=== PATIENT | female | born 1955 | race Caucasian/White ===

== ENCOUNTER → 2017-02-22 | Outpatient (CLI) | payer MEDICARE, OTHER | LOC: RAD 12:35 | PROVIDERS: ATTEND Internal Medicine Cardiovascular Disease | DX: I71.2 Thoracic aortic aneurysm, without rupture (principal) | CPT/HCPCS: 71260; 82565 ==

== ENCOUNTER → 2017-08-25 | Outpatient (CLI) | payer MEDICARE, OTHER ==
--- NOTE | 2017-08-25 11:00 | RADIOLOGY REPORT (SQ) ---
EXAM DESCRIPTION: CT CHEST WITH COMPLETED DATE/TIME: 08/25/2017 10:22 am REASON FOR STUDY: THORACIC AORTIC ANEURYSM (I71.2) I71.2 THORACIC AORTIC ANEURYSM, WITHOUT RUPTURE COMPARISON: 02/22/2017 TECHNIQUE: CT scan of the chest performed using helical scanning technique with dynamic intravenous contrast injection. Images reviewed with lung, soft tissue and bone windows. Reconstructed coronal and sagittal MPR images reviewed. All images stored on PACS. All CT scanners at this facility use dose modulation, iterative reconstruction, and/or weight based d osing when appropriate to reduce radiation dose to as low as reasonably achievable (ALARA). [facility]: Dose Right [facility]: CareDose [facility]: Dose Right [facility]: Teradose 4D [facility]: Compufirst CONTRAST TYPE AND DOSE: contrast/concentration: Isovue 370.00 mg/ml; Total Contrast Delivered: 80.0 ml; Total Saline Delivered: 21.6 ml RENAL FUNCTION: Creatinine 0.8 RADIATION DOSE: Up-to-date CT equipment and radiation dose reduction techniques were employed. CTDIv ol: 11.9 mGy. DLP: 410 mGy-cm. . LIMITATIONS: None. FINDINGS: LUNGS AND PLEURA: No opacities, nodules, masses. No pneumothorax. No effusions. HILAR AND MEDIASTINAL STRUCTURES: No identified masses or abnormal nodes. HEART AND VASCULAR STRUCTURES: The previously described aneurysm of the ascending thoracic aorta is a gain identified and appears unchanged. Transverse diameter again measures 3.7 cm. No central pulmon brandon emboli. There is some minimal thickening of the pericardial stripe suggesting a small pericardia l effusion HARDWARE: None in the chest. UPPER ABDOMEN: No significant findings. Limited exam. THYROID AND OTHER SOFT TISSUES: No masses. No adenopathy. BONES: No significant finding. OTHER: Small hiatal hernia is again identified. IMPRESSION: Stable appearing ascending thoracic aortic aneurysm. No acute consolidations or pleural effusions. Other findings as noted above. TECHNICAL DOCUMENTATION: JOB ID: [id number] Quality ID # [id number]: Final reports with documentation of one or more dose reduction techniques (e.g., Au tomated exposure control, adjustment of the mA and/or kV according to patient size, use of iterative reconstruction technique) 2010 [employer]- All Rights Reserved
== END ==
LOC: RAD 09:52
PROVIDERS: ATTEND Internal Medicine Cardiovascular Disease
DX: I71.2 Thoracic aortic aneurysm, without rupture (principal)
CPT/HCPCS: 71260; 82565

== ENCOUNTER 2017-10-05 14:01 | Inpatient (IN) | payer MEDICARE, OTHER ==
[2017-10-05] MEDS ORDERED: ASPIRIN 81 MG TABLET, CHEWABLE PO ONE (14:29)
--- NOTE | 2017-10-05 14:33 | ER Document Report ---
ED Medical Screen (RME) - General Chief Complaint: Palpitations Stated Complaint: HEART RATE ISSUES Time Seen by Provider: 10/05/17 14:28 Mode of Arrival: Ambulatory Information source: Patient, Relative TRAVEL OUTSIDE OF THE [place] IN LAST 30 DAYS: No - HPI Onset: Other - INCREASED IN LAST 2 DAYS Onset/Duration: Intermittent Quality of pain: No pain Associated Symptoms: Other - FEELS PULSE IN NECK Exacerbated by: Denies Relieved by: Denies Similar symptoms previously: Yes Recently seen / treated by doctor: Yes - Related Data Smoking: Non-smoker Frequency of alcohol use: None Drug Abuse: None Allergies/Adverse Reactions: No Known Allergies Allergy (Verified 10/05/17 14:19) Home Medications: Current Home Medications Furosemide [Furosemide] 20 mg PO DAILY 10/05/17 [History] Levothyroxine Sodium [Synthroid 0.1 mg Tablet] 0.1 mg PO DAILY 10/05/17 [History ] Lisinopril [Prinivil 5 mg Tablet] 5 mg PO DAILY 10/05/17 [History] Loratadine 10 mg PO DAILY 10/05/17 [History] Pioglitazone HCl 15 mg PO DAILY 10/05/17 [History] Potassium Chloride 10 meq PO DAILY 10/05/17 [History] Simvastatin [Zocor 40 mg Tablet] 20 mg PO DAILY 10/05/17 [History] Sitagliptin Phosphate [Januvia] 100 mg PO DAILY 10/05/17 [History] Trazodone HCl 25 mg PO QHS 10/05/17 [History] Past Medical History - General Information source: Patient - Social History Cigarette use (# per day): No Chew tobacco use (# tins/day): No Frequency of alcohol use: None Drug Abuse: None Lives with: Family Family history: Reviewed & Not Pertinent - Past Medical History Cardiac Medical History: Reports: Hx Hypertension Denies: Hx Atrial Fibrillation, Hx Coronary Artery Disease Pulmonary Medical History: Reports: None Renal/ Medical History: Denies: Hx Peritoneal Dialysis Review of Systems - Review of Systems Constitutional: No symptoms reported EENT: See HPI Cardiovascular: See HPI Respiratory: No symptoms reported Gastrointestinal: No symptoms reported Physical Exam - Vital signs Vitals: Temp Pulse Resp BP Pulse Ox 97.8 F 118 H 18 167/85 H 97 10/05/17 14:06 10/05/17 14:06 10/05/17 14:06 10/05/17 14:06 10/05/17 14:06 Interpretation: Hypertensive, Tachycardic. No: Tachypneic, Febrile Course - Vital Signs Vital signs: Temp Pulse Resp BP Pulse Ox 97.8 F 118 H 18 167/85 H 97 10/05/17 14:06 10/05/17 14:06 10/05/17 14:06 10/05/17 14:06 10/05/17 14:06
[2017-10-05] MEDS ORDERED: METOPROLOL TARTRATE PF/INJ 5 MG/5 ML SDV IV ONE (15:08)
[2017-10-05 15:17] LABS: ABSOLUTE BASOPHILS # (AUTO) 0.2 10^3/uL (0.0-0.2); ABSOLUTE EOSINOPHILS # (AUTO) 0.1 10^3/uL (0.0-0.6); ABSOLUTE LYMPHOCYTES (AUTO) 1.6 10^3/uL (0.5-4.7); ABSOLUTE MONOCYTES (AUTO) 0.9 10^3/uL (0.1-1.4); ABSOLUTE NEUT (AUTO) 5.2 10^3/uL (1.7-8.2); BASOPHILS % (AUTO) 2.3 % (0-2); EOSINOPHILS % (AUTO) 1.9 % (0-6); HEMATOCRIT 43.4 % (36.0-47.0); HEMOGLOBIN 14.9 g/dL (12.0-15.5); HGB HCT DIFFERENCE 1.3; LYMPHOCYTES % (AUTO) 19.4 % (13-45); MEAN CORPUSCULAR HEMOGLOBIN 30.5 pg (27.0-33.4); MEAN CORPUSCULAR HGB CONC 34.4 g/dL (32.0-36.0); MEAN CORPUSCULAR VOLUME 89 fl (80-97); MONOCYTES % (AUTO) 11.6 % (3-13); RED CELL DISTRIBUTION WIDTH 13.4 % (11.5-14.0); SEGMENTED NEUTROPHILS % (AUTO) 64.8 % (42-78)
--- NOTE | 2017-10-05 15:44 | RADIOLOGY REPORT (SQ) ---
EXAM DESCRIPTION: CHEST SINGLE VIEW COMPLETED DATE/TIME: 10/05/2017 3:30 pm REASON FOR STUDY: PALPITATIONS COMPARISON: CT 08/25/2017 EXAM PARAMETERS: NUMBER OF VIEWS: One view. TECHNIQUE: Single frontal radiographic view of the chest acquired. RADIATION DOSE: NA LIMITATIONS: None. FINDINGS: LUNGS AND PLEURA: No opacities, masses or pneumothorax. No pleural effusion. MEDIASTINUM AND HILAR STRUCTURES: No masses. Contour normal. HEART AND VASCULAR STRUCTURES: Cardiomegaly. No failure. BONES: No acute findings. HARDWARE: None in the chest. OTHER: No other significant finding. IMPRESSION: Cardiomegaly. No failure. TECHNICAL DOCUMENTATION: JOB ID: [id number] [employer]- All Rights Reserved
--- NOTE | 2017-10-05 15:58 | ER Document Report ---
ED General - General Chief Complaint: Palpitations Stated Complaint: HEART RATE ISSUES Time Seen by Provider: 10/05/17 14:28 Mode of Arrival: Ambulatory Information source: Patient, Relative TRAVEL OUTSIDE OF THE [place] IN LAST 30 DAYS: No - HPI Patient complains to provider of: Fast heart rate Onset: This morning Onset/Duration: Sudden Quality of pain: No pain Severity: Moderate Pain Level: Denies Context: The members state the patient does appear to be short of breath upon ambulation. She denies this. Associated symptoms: None Exacerbated by: Denies Relieved by: Denies Similar symptoms previously: Yes Recently seen / treated by doctor: No - Related Data Allergies/Adverse Reactions: No Known Allergies Allergy (Verified 10/05/17 14:19) Home Medications: Current Home Medications Furosemide [Furosemide] 20 mg PO DAILY 10/05/17 [History] Levothyroxine Sodium [Synthroid 0.1 mg Tablet] 0.1 mg PO DAILY 10/05/17 [History ] Lisinopril [Prinivil 5 mg Tablet] 5 mg PO DAILY 10/05/17 [History] Loratadine 10 mg PO DAILY 10/05/17 [History] Pioglitazone HCl 15 mg PO DAILY 10/05/17 [History] Potassium Chloride 10 meq PO DAILY 10/05/17 [History] Simvastatin [Zocor 40 mg Tablet] 20 mg PO DAILY 10/05/17 [History] Sitagliptin Phosphate [Januvia] 100 mg PO DAILY 10/05/17 [History] Trazodone HCl 25 mg PO QHS 10/05/17 [History] Past Medical History - General Information source: Patient, Relative, [facility] Records - Social History Smoking Status: Never Smoker Cigarette use (# per day): No Chew tobacco use (# tins/day): No Frequency of alcohol use: None Drug Abuse: None Lives with: Family Family History: Reviewed & Not Pertinent Patient has suicidal ideation: No Patient has homicidal ideation: No - Past Medical History Cardiac Medical History: Reports: Hx Hypertension, Other Denies: Hx Atrial Fibrillation, Hx Coronary Artery Disease Pulmonary Medical History: Reports: None EENT Medical History: Reports: None Other: Patient had a cleft palate and had it repaired Neurological Medical History: Reports: None Endocrine Medical History: Reports: Hx Diabetes Mellitus Type 2, Hx Hypothyroidism Renal/ Medical History: Reports: None. Denies: Hx Peritoneal Dialysis Malignancy Medical History: Reports: None GI Medical History: Reports: None Musculoskeltal Medical History: Reports None Skin Medical History: Reports None Psychiatric Medical History: Reports: None Traumatic Medical History: Reports: None Infectious Medical History: Reports: None Surgical Hx: Other - Cleft palate repair Physical Exam - Vital signs Vitals: Temp Pulse Resp BP Pulse Ox 97.8 F 118 H 18 167/85 H 97 10/05/17 14:06 10/05/17 14:06 10/05/17 14:06 10/05/17 14:06 10/05/17 14:06 Interpretation: Hypertensive, Tachycardic - Notes Notes: PHYSICAL EXAMINATION: GENERAL: Well-appearing, well-nourished and in no acute distress. HEAD: Atraumatic, normocephalic. EYES: Pupils equal round and reactive to light, extraocular movements intact, conjunctiva are normal. ENT: Nares patent, oropharynx clear without exudates. Moist mucous membranes. NECK: Normal range of motion, supple without lymphadenopathy LUNGS: Breath sounds clear to auscultation bilaterally and equal. No wheezes rales or rhonchi. HEART: Tacky and rhythm without murmurs ABDOMEN: Soft, nontender, nondistended abdomen. No guarding, no rebound. No masses appreciated. Female : deferred Musculoskeletal: Normal range of motion, no pitting or edema. No cyanosis. NEUROLOGICAL: Cranial nerves grossly intact. Normal speech, normal gait. Normal sensory, motor exams PSYCH: Normal mood, normal affect. SKIN: Warm, Dry, normal turgor, no rashes or lesions noted. Course - Re-evaluation Re-evalutation: 10/05/17 16:34 I did go back and speak with the patient as well as her relatives. Patient is short of breath upon mild exertion (getting in and out of bed.) Her pulse ox only dropped to about 95% on room air with this. Metoprolol did slow her heart rate down into the low 90s and a repeat EKG demonstrated normal sinus rhythm with a heart rate of 87. CTA ordered, patient and family aware. Continue to await results of troponin as well as TSH. - Vital Signs Vital signs: Temp Pulse Resp BP Pulse Ox 97.9 F 96 22 H 131/64 H 93 10/06/17 07:24 10/06/17 07:24 10/06/17 07:24 10/06/17 07:24 10/06/17 07:24 - Laboratory Result Diagrams: 10/06/17 03:08 10/06/17 03:08 Laboratory results interpreted by me: 10/05/17 10/05/17 10/05/17 15:00 15:00 15:46 Basophils % 2.3 H D-Dimer 2.71 H BUN 21 H Glucose 127 H - Diagnostic Test Radiology reviewed: Image reviewed Radiology results interpreted by me: 10/05/17 16:01 cardiomegaly without CHF. Mild widened mediastinum. 10/05/17 16:47 - EKG Interpretation by Me EKG shows normal: Sinus rhythm Rate: Tachycardia When compared to previous EKG there are: Previous EKG unavailable Additional EKG results interpreted by me: 10/05/17 16:39 EKG completed 10/05/2017 at 1622 showed normal sinus rhythm at a rate of 87 with left axis deviation mild left ventricular hypertrophy - Transfer of Care Notes: 10/05/17 18:17 Dr. Allan casting director called to state that the patient did have clots in her right lower lobe pulmonary artery distribution area. I did talk to the hospitalist Dr. Harmon and he will sign out to Dr. Mayer. 10/05/17 18:44 I did talk to the family as well as the patient. They are aware of the results of the CAT scan. I did tell him that the admitting physician will be coming down to discuss disposition with them questions were answered in stable condition Discharge - Discharge Clinical Impression: Pulmonary embolism on right Condition: Good Disposition: ADMITTED INPATIENT Admitting Provider: Hospitalist Unit Admitted: Telemetry
[2017-10-05 16:15] LABS: ALANINE AMINOTRANSFERASE 34 U/L (9-52); ALBUMIN 4.4 g/dL (3.5-5.0); ALKALINE PHOSPHATASE 123 U/L (38-126); ANION GAP 14 (5-19); ASPARTATE AMINO TRANSFERASE 28 U/L (14-36); BILIRUBIN,DIRECT 0.4 mg/dL (0.0-0.4); BILIRUBIN,TOTAL 0.9 mg/dL (0.2-1.3); BLOOD UREA NITROGEN 21 mg/dL (7-20); CALCIUM 9.5 mg/dL (8.4-10.2); CARBON DIOXIDE 27 mmol/L (22-30); CHLORIDE 102 mmol/L (98-107); CREATINE KINASE 68 U/L (30-135); CREATININE RESULT 0.79 mg/dL (0.52-1.25); GLUCOSE 127 mg/dL (75-110); POTASSIUM 4.3 mmol/L (3.6-5.0); SODIUM 142.8 mmol/L (137-145); TOTAL PROTEIN 7.5 g/dL (6.3-8.2)
[2017-10-05] MEDS ORDERED: NORMAL SALINE 500 ML IV ONE (16:25)
[2017-10-05 16:26] LABS: CREATINE KINASE MB 0.66 ng/mL (<4.55)
[2017-10-05 16:28] LABS: TROPONIN I < 0.012 ng/mL
--- NOTE | 2017-10-05 18:15 | RADIOLOGY REPORT (SQ) ---
EXAM DESCRIPTION: CTA CHEST COMPLETED DATE/TIME: 10/05/2017 5:49 pm REASON FOR STUDY: tachy/+ d dimer COMPARISON: CT chest 08/25/2017 TECHNIQUE: CT scan of the chest performed using helical scanning technique with dynamic intravenous contrast injection. Images reviewed with lung, soft tissue and bone windows. Reconstructed coronal and sagittal MPR images reviewed. Additional 3 dimensional post-processing performed to develop Maximal Intensity Projection images (MT P). All images stored on PACS. All CT scanners at this facility use dose modulation, iterative reconstruction, and/or weight based d osing when appropriate to reduce radiation dose to as low as reasonably achievable (ALARA). [facility]: Dose Right [facility]: CareDose [facility]: Dose Right [facility]: Teradose 4D [facility]: DocbookMD CONTRAST TYPE AND DOSE: 78 cc Isovue 370- low osmolar. Contrast bolus optimized for the pulmonary arteries. Not diagnostic for the aorta. RENAL FUNCTION: Creatinine 0.8 BUN 21 RADIATION DOSE: Total exam DLP 561 mGy cm. LIMITATIONS: None. FINDINGS: LUNGS AND PLEURA: No masses, infiltrates, pneumothorax. No pleural effusions, calcificati ons. AORTA AND GREAT VESSELS: There is ectasia of the ascending aorta. HEART: No pericardial effusion. PULMONARY ARTERIES: Cannot exclude small emboli in the right lower lobe pulmonary arterial branches. HILAR AND MEDIASTINAL STRUCTURES: No identified masses or abnormal nodes. HARDWARE: None in the chest. UPPER ABDOMEN: No significant findings. Limited exam. THYROID AND OTHER SOFT TISSUES: No masses. No adenopathy. BONES: No acute or significant finding. 3D MIPS: Confirm above findings. OTHER: No other significant finding. IMPRESSION: There appear to be small emboli in the branches of the right lower lobe pulmonary artery . COMMENT: Findings were discussed with the ordering physician at 1810 hours on this date. Quality ID # [id number]: Final reports with documentation of one or more dose reduction techniques (e.g., Au tomated exposure control, adjustment of the mA and/or kV according to patient size, use of iterative reconstruction technique) TECHNICAL DOCUMENTATION: JOB ID: [id number]- All Rights Reserved
--- NOTE | 2017-10-05 18:53 | EKG REPORT ---
SEVERITY:- ABNORMAL ECG - SINUS RHYTHM LEFT AXIS DEVIATION LEFT VENTRICULAR HYPERTROPHY NONSPECIFIC ST-T CHANGES ANTERIOR LEADS. : Confirmed by: Lucas Stanley MD 05-Oct-2017 18:52:32
--- NOTE | 2017-10-05 18:53 | EKG REPORT ---
SEVERITY:- ABNORMAL ECG - SINUS RHYTHM PROBABLE LEFT ATRIAL ABNORMALITY LEFT ANTERIOR FASCICULAR BLOCK LEFT VENTRICULAR HYPERTROPHY LATERAL INFARCT, OLD : Confirmed by: Lucas Stanley MD 05-Oct-2017 18:52:45
[2017-10-05] MEDS ORDERED: ACETAMINOPHEN 325 MG TABLET PO PRN (20:37)
[2017-10-05] MEDS ORDERED: ONDANSETRON 4 MG TAB.RAPDIS PO PRN (20:37)
[2017-10-05 21:55] LABS: CREATINE KINASE MB 0.87 ng/mL (<4.55); TROPONIN I 0.023 ng/mL
[2017-10-05] MEDS ORDERED: SIMVASTATIN 40 MG TABLET PO SCH (22:00)
[2017-10-05] MEDS ORDERED: TRAZODONE HCL 50 MG TABLET PO SCH (22:00)
[2017-10-05] MEDS ORDERED: ENOXAPARIN SODIUM INJ 100 MG/1 ML DISP.SYRIN SUBCUT SCH ×2 (22:00)
[2017-10-06 03:26] LABS: HEMATOCRIT 39.7 % (36.0-47.0); HEMOGLOBIN 13.5 g/dL (12.0-15.5); HGB HCT DIFFERENCE 0.8; MEAN CORPUSCULAR HEMOGLOBIN 30.3 pg (27.0-33.4); MEAN CORPUSCULAR HGB CONC 34.1 g/dL (32.0-36.0); MEAN CORPUSCULAR VOLUME 89 fl (80-97); RED BLOOD COUNT 4.46 10^6/uL (3.72-5.28); RED CELL DISTRIBUTION WIDTH 13.6 % (11.5-14.0); WHITE BLOOD COUNT 8.4 10^3/uL (4.0-10.5)
[2017-10-06 03:50] LABS: ANION GAP 12 (5-19); BLOOD UREA NITROGEN 18 mg/dL (7-20); CALCIUM 9.2 mg/dL (8.4-10.2); CARBON DIOXIDE 25 mmol/L (22-30); CHLORIDE 106 mmol/L (98-107); CREATININE RESULT 0.75 mg/dL (0.52-1.25); GLUCOSE 131 mg/dL (75-110); POTASSIUM 3.9 mmol/L (3.6-5.0); SODIUM 143.1 mmol/L (137-145)
--- NOTE | 2017-10-06 03:51 | PDOC H&P ---
History of Present Illness Admission Date/PCP: 10/05/17 18:52 MARY KLINE PA-C History of Present Illness: KEHINDE LEPE is a 61 year old female with past medical history of diabetes, hypertension, hypothyroidism, hypokalemia, hyperlipidemia who reports that she has been short of breath and had dyspnea on exertion for the last several days. She reports that yesterday she became concerned when she started having some fast heart rate after drinking tea. She denies any chest discomfort. In the emergency department, patient was found to have an acute pulmonary embolus. She is referred to hospital service for admission. Past Medical History Cardiac Medical History: Reports: Hyperlipidema, Hypertension Denies: Atrial Fibrillation, Coronary Artery Disease Pulmonary Medical History: Reports: None EENT Medical History: Reports: Throat - Cleft palate Neurological Medical History: Reports: None Endocrine Medical History: Reports: Diabetes Mellitus Type 2, Hypothyroidism, Obesity Renal/ Medical History: Reports: None Malignancy Medical History: Reports: None GI Medical History: Reports: None Musculoskeltal Medical History: Reports: None Skin Medical History: Reports: None Psychiatric Medical History: Reports: None Traumatic Medical History: Reports: None Infectious Medical History: Reports: None Past Surgical History Past Surgical History: Reports: Other - Cleft palate surgery Social History Lives with: Family Smoking Status: Never Smoker Frequency of Alcohol Use: None Hx Recreational Drug Use: No Hx Prescription Drug Abuse: No - Advance Directive Resuscitation Status: Full Code Surrogate healthcare decision maker:: Karuna Goodman, sister Family History Family History: Other - Kidney problems, mother; pulmonary fibrosis, father Parental Family History Reviewed: Yes Children Family History Reviewed: NA Sibling(s) Family History Reviewed.: Yes Medication/Allergy Home Medications: Furosemide [Furosemide] 20 mg PO DAILY 10/05/17 Levothyroxine Sodium [Synthroid 0.1 mg Tablet] 0.1 mg PO DAILY 10/05/17 Lisinopril [Prinivil 5 mg Tablet] 5 mg PO DAILY 10/05/17 Loratadine 10 mg PO DAILY 10/05/17 Pioglitazone HCl 15 mg PO DAILY 10/05/17 Potassium Chloride 10 meq PO DAILY 10/05/17 Simvastatin [Zocor 40 mg Tablet] 20 mg PO DAILY 10/05/17 Sitagliptin Phosphate [Januvia] 100 mg PO DAILY 10/05/17 Trazodone HCl 25 mg PO QHS 10/05/17 Allergies/Adverse Reactions: No Known Allergies Allergy (Verified 10/05/17 14:19) Review of Systems Constitutional: ABSENT: chills, fever(s), headache(s), weight gain, weight loss Eyes: ABSENT: visual disturbances Ears: ABSENT: hearing changes Cardiovascular: PRESENT: dyspnea on exertion, edema. ABSENT: chest pain, orthropnea, palpitations Respiratory: PRESENT: dyspnea. ABSENT: cough, hemoptysis, sputum Gastrointestinal: ABSENT: abdominal pain, constipation, diarrhea, hematemesis, hematochezia, nausea, vomiting Genitourinary: ABSENT: dysuria, hematuria Musculoskeletal: ABSENT: joint swelling Integumentary: ABSENT: rash, wounds Neurological: ABSENT: abnormal gait, abnormal speech, confusion, dizziness, focal weakness, syncope Psychiatric: ABSENT: anxiety, depression, homidical ideation, suicidal ideation Endocrine: ABSENT: cold intolerance, heat intolerance, polydipsia, polyuria Hematologic/Lymphatic: ABSENT: easy bleeding, easy bruising Physical Exam Vital Signs: Temp Pulse Resp BP Pulse Ox 97.9 F 71 16 116/73 98 10/05/17 23:18 10/06/17 02:00 10/05/17 23:18 10/05/17 23:18 10/05/17 23:18 Intake & Output 10/04/17 10/05/17 10/06/17 06:59 06:59 06:59 Weight 93.3 kg General appearance: PRESENT: no acute distress, morbidly obese, well-developed, well-nourished Head exam: PRESENT: atraumatic, normocephalic Eye exam: PRESENT: conjunctiva pink, EOMI, PERRLA. ABSENT: scleral icterus Ear exam: PRESENT: normal external ear exam Mouth exam: PRESENT: moist, tongue midline Neck exam: ABSENT: JVD, lymphadenopathy, thyromegaly, tracheal deviation Respiratory exam: PRESENT: clear to auscultation bhargavi, symmetrical, unlabored. ABSENT: rales, rhonchi, wheezes Cardiovascular exam: PRESENT: RRR, +S1, +S2, tachycardia. ABSENT: diastolic murmur, rubs, systolic murmur Pulses: PRESENT: normal dorsalis pedis pul Vascular exam: PRESENT: normal capillary refill GI/Abdominal exam: PRESENT: normal bowel sounds, soft. ABSENT: distended, guarding, mass, organolmegaly, rebound, tenderness Rectal exam: PRESENT: deferred Extremities exam: PRESENT: full ROM, +2 edema. ABSENT: calf tenderness, clubbing Neurological exam: PRESENT: alert, awake, oriented to person, oriented to place , oriented to time, oriented to situation, CN II-XII grossly intact. ABSENT: motor sensory deficit Psychiatric exam: PRESENT: appropriate affect, normal mood. ABSENT: homicidal ideation, suicidal ideation Skin exam: PRESENT: dry, intact, warm. ABSENT: cyanosis, rash Results Laboratory Results: 10/06/17 03:08 10/05/17 10/06/17 21:03 03:08 WBC 8.4 RBC 4.46 Hgb 13.5 Hct 39.7 MCV 89 MCH 30.3 MCHC 34.1 RDW 13.6 Plt Count 182 TSH 0.86 10/05/17 10/05/17 21:03 21:03 Creatine Kinase 63 CK-MB (CK-2) 0.87 Troponin I 0.023 Impressions: Chest X-Ray 10/05/17 14:30 IMPRESSION: Cardiomegaly. No failure. Chest/Abdomen CTA 10/05/17 16:29 IMPRESSION: There appear to be small emboli in the branches of the right lower lobe pulmonary artery. Status: Imported from PACS Assessment & Plan - Diagnosis (1) Pulmonary embolism on right Is this a current diagnosis for this admission?: Yes Plan: Place patient on Lovenox with plans to transition to eliquis tomorrow patient is unable to take pills that are not able to be chewed. (2) Diabetes mellitus Qualifiers: Diabetes mellitus type: type 2 Diabetes mellitus complication status: with unspecified complications Diabetes mellitus manager intermediate insulin use: without manager intermediate use Qualified Code(s): E11.8 - Type 2 diabetes mellitus with unspecified complications Is this a current diagnosis for this admission?: Yes Plan: Continue on home medications. Place on diabetic diet. Check A1c (3) Hypertension Qualifiers: Hypertension type: essential hypertension Qualified Code(s): I10 - Essential (primary) hypertension Is this a current diagnosis for this admission?: Yes Plan: continue home medications (4) Hyperlipidemia Qualifiers: Hyperlipidemia type: unspecified Qualified Code(s): E78.5 - Hyperlipidemia , unspecified Is this a current diagnosis for this admission?: Yes (5) Morbid obesity with BMI of 40.0-44.9, adult Is this a current diagnosis for this admission?: Yes (6) Personal history of (corrected) cleft lip and palate Is this a current diagnosis for this admission?: Yes - Time Time Spent: 30 to 50 Minutes Anticipated discharge: Home
[2017-10-06 03:59] LABS: CREATINE KINASE MB 1.61 ng/mL (<4.55); TROPONIN I 0.021 ng/mL
[2017-10-06] MEDS ORDERED: LEVOTHYROXINE SODIUM 0.1 MG TABLET PO SCH (06:00)
[2017-10-06] MEDS ORDERED: APIXABAN 5 MG TABLET PO ONE (09:00)
[2017-10-06] MEDS ORDERED: DOCUSATE SODIUM 100 MG CAPSULE PO SCH (10:00)
[2017-10-06] MEDS ORDERED: PIOGLITAZONE HCL 15 MG TABLET PO SCH (10:00)
[2017-10-06] MEDS ORDERED: DOCUSATE SODIUM 100 MG/10 ML UDC PO SCH (10:00)
[2017-10-06] MEDS ORDERED: LISINOPRIL 5 MG TABLET PO SCH (10:00)
[2017-10-06] MEDS ORDERED: SITAGLIPTIN PHOSPHATE 50 MG TABLET PO SCH (10:00)
[2017-10-06] MEDS ORDERED: LORATADINE 10 MG TABLET PO SCH (10:00)
[2017-10-06 10:40] LABS: CREATINE KINASE MB 1.28 ng/mL (<4.55); TROPONIN I 0.013 ng/mL
--- NOTE | 2017-10-06 11:56 | RADIOLOGY REPORT (SQ) ---
EXAM DESCRIPTION: VENOUS BILATERAL LOWER COMPLETED DATE/TIME: 10/06/2017 11:47 am REASON FOR STUDY: new pe, ble swelling COMPARISON: None. TECHNIQUE: Dynamic and static lamb scale and color images acquired of both lower extremity venous sy stems. Selected spectral images acquired with additional compression and augmentation maneuvers. Imag es stored on PACS. LIMITATIONS: None. FINDINGS: RIGHT LEG COMMON FEMORAL AND FEMORAL: Normal phasicity, compression and augmentation. No visualized echogenic m aterial on lamb scale. No defects on color images. POPLITEAL: Normal compression and augmentation. No visualized echogenic material on lamb scale. No de fects on color images. CALF VESSELS: Normal compression and augmentation. No visualized echogenic material on lamb scale. No defects on color image. GSV AND SSV: Normal compression. No visualized echogenic material on lamb scale. No defects on color images. ANY DEEP VENOUS INSUFFICIENCY: No. ANY EVIDENCE OF POPLITEAL CYST: No. OTHER: No other significant finding. LEFT LEG COMMON FEMORAL AND FEMORAL: Normal phasicity, compression and augmentation. No visualized echogenic m aterial on lamb scale. No defects on color images. POPLITEAL: Normal compression and augmentation. No visualized echogenic material on lamb scale. No de fects on color images. CALF VESSELS: Normal compression and augmentation. No visualized echogenic material on lamb scale. No defects on color images. GSV AND SSV: Normal compression. No visualized echogenic material on lamb scale. No defects on color images. ANY DEEP VENOUS INSUFFICIENCY: No. ANY EVIDENCE POPLITEAL CYST: No. OTHER: No other significant finding. IMPRESSION: NO EVIDENCE DVT OR SVT IN EITHER LEG. TECHNICAL DOCUMENTATION: JOB ID: [id number] [employer]- All Rights Reserved
[2017-10-06 11:57] LABS: APPEARANCE,URINE SLIGHTLY-CLOUDY; BILIRUBIN,URINE NEGATIVE (NEGATIVE); GLUCOSE, URINE NEGATIVE (NEGATIVE); KETONES,URINE NEGATIVE (NEGATIVE); LEUKOCYTE ESTERASE,URINE LARGE (NEGATIVE); NITRITE,URINE NEGATIVE (NEGATIVE); PROTEIN,URINE NEGATIVE (NEGATIVE); URINE SPECIFIC GRAVITY 1.033
[2017-10-06 12:10] LABS: BACTERIA,URINE 2+ /HPF; WBC,URINE 20-30 /HPF
--- NOTE | 2017-10-06 13:41 | PDOC DISCHARGE SUMMARY ---
General - Admit/Disc Date/PCP Admission Date/Primary Care Provider: 10/05/17 18:52 MARY KLINE PA-C Discharge Date: 10/06/17 - Discharge Diagnosis (1) Diabetes mellitus Is this a current diagnosis for this admission?: Yes (2) Hyperlipidemia Is this a current diagnosis for this admission?: Yes (3) Hypertension Is this a current diagnosis for this admission?: Yes (4) Morbid obesity with BMI of 40.0-44.9, adult Is this a current diagnosis for this admission?: Yes (5) Personal history of (corrected) cleft lip and palate Is this a current diagnosis for this admission?: Yes (6) Pulmonary embolism on right Is this a current diagnosis for this admission?: Yes - Additional Information Resuscitation Status: Full Code Discharge Diet: Diabetic Discharge Activity: Activity As Tolerated Home Medications: Furosemide 20 mg PO DAILY 10/05/17 Levothyroxine Sodium [Synthroid 0.1 mg Tablet] 0.1 mg PO DAILY 10/05/17 Lisinopril [Prinivil 5 mg Tablet] 5 mg PO DAILY 10/05/17 Loratadine 10 mg PO DAILY 10/05/17 Pioglitazone HCl 15 mg PO DAILY 10/05/17 Potassium Chloride 10 meq PO DAILY 10/05/17 Simvastatin [Zocor 40 mg Tablet] 20 mg PO DAILY 10/05/17 Sitagliptin Phosphate [Januvia] 100 mg PO DAILY 10/05/17 Trazodone HCl 25 mg PO QHS 10/05/17 Apixaban [Eliquis 5 mg Tablet] 10 mg PO BID 30 Days #68 tablet 10/06/17 History of Present Illness History of Present Illness: KEHINDE LEPE is a 61 year old female who presented with complaint of dyspnea on exertion. Hospital Course Hospital Course: Patient presented with dyspnea on exertion and tachycardia. Patient found to have a pulmonary embolism on CTA. Venous doppler is negative. Patient was initially started on levonex 1 mg/kg. Patient was transitioned to eliquis 10mg po bid x 7 days then followed by 5mg po bid for 3-4 months. Patient denies any SOB or chest pain. Patient was continued on home medications for her diabetes. Patient was continued on her home medications for hypertension. Physical Exam Vital Signs: Temp Pulse Resp BP Pulse Ox 97.5 F 97 20 137/65 H 98 10/06/17 11:21 10/06/17 11:21 10/06/17 11:21 10/06/17 11:21 10/06/17 11:21 Intake & Output 10/05/17 10/06/17 10/07/17 06:59 06:59 06:59 Weight 93.3 kg 93.3 kg General appearance: PRESENT: no acute distress, well-developed, well-nourished Head exam: PRESENT: atraumatic, normocephalic Eye exam: PRESENT: conjunctiva pink, EOMI, PERRLA. ABSENT: scleral icterus Ear exam: PRESENT: normal external ear exam Mouth exam: PRESENT: moist, tongue midline Neck exam: ABSENT: carotid bruit, JVD, lymphadenopathy, thyromegaly Respiratory exam: PRESENT: clear to auscultation bhargavi. ABSENT: rales, rhonchi, wheezes Cardiovascular exam: PRESENT: RRR. ABSENT: diastolic murmur, rubs, systolic murmur Pulses: PRESENT: normal dorsalis pedis pul Vascular exam: PRESENT: normal capillary refill GI/Abdominal exam: PRESENT: normal bowel sounds, soft. ABSENT: distended, guarding, mass, organolmegaly, rebound, tenderness Rectal exam: PRESENT: deferred Extremities exam: PRESENT: full ROM. ABSENT: calf tenderness, clubbing, pedal edema Neurological exam: PRESENT: alert, awake, oriented to person, oriented to place , oriented to time, oriented to situation, CN II-XII grossly intact. ABSENT: motor sensory deficit Psychiatric exam: PRESENT: appropriate affect, normal mood. ABSENT: homicidal ideation, suicidal ideation Skin exam: PRESENT: dry, intact, warm. ABSENT: cyanosis, rash Results Laboratory Results: 10/06/17 03:08 10/06/17 03:08 10/05/17 10/06/17 10/06/17 21:03 03:08 03:08 WBC 8.4 RBC 4.46 Hgb 13.5 Hct 39.7 MCV 89 MCH 30.3 MCHC 34.1 RDW 13.6 Plt Count 182 Sodium 143.1 Potassium 3.9 Chloride 106 Carbon Dioxide 25 Anion Gap 12 BUN 18 Creatinine 0.75 Est GFR ( Amer) > 60 Est GFR (Non-Af Amer) > 60 Glucose 131 H Calcium 9.2 TSH 0.86 Urine Color Urine Appearance Urine pH Ur Specific Geary Urine Protein Urine Glucose (UA) Urine Ketones Urine Blood Urine Nitrite Ur Leukocyte Esterase Stool Occult Blood 10/06/17 10/06/17 09:30 11:03 WBC RBC Hgb Hct MCV MCH MCHC RDW Plt Count Sodium Potassium Chloride Carbon Dioxide Anion Gap BUN Creatinine Est GFR ( Amer) Est GFR (Non-Af Amer) Glucose Calcium TSH Urine Color YELLOW Urine Appearance SLIGHTLY-CLOUDY Urine pH 5.0 Ur Specific Geary 1.033 Urine Protein NEGATIVE Urine Glucose (UA) NEGATIVE Urine Ketones NEGATIVE Urine Blood SMALL H Urine Nitrite NEGATIVE Ur Leukocyte Esterase LARGE H Stool Occult Blood NEGATIVE 10/05/17 10/05/17 10/06/17 21:03 21:03 03:08 Creatine Kinase 63 86 CK-MB (CK-2) 0.87 Troponin I 0.023 10/06/17 10/06/17 10/06/17 03:08 09:40 09:40 Creatine Kinase 93 CK-MB (CK-2) 1.61 1.28 Troponin I 0.021 0.013 Impressions: Chest X-Ray 10/05/17 14:30 IMPRESSION: Cardiomegaly. No failure. Chest/Abdomen CTA 10/05/17 16:29 IMPRESSION: There appear to be small emboli in the branches of the right lower lobe pulmonary artery. Venous Doppler Study 10/06/17 00:00 IMPRESSION: NO EVIDENCE DVT OR SVT IN EITHER LEG. Qualifiers PATEINT BEING DISCHARGED WITH ANY OF THE FOLLOWING DIAGNOSIS?: VTE (PE or DVT) VTE patient discharged on overlapping Therapy?: Yes Plan Discharge Plan: Patient is hemodynamically stable and is being discharge home on eliquis 10mg po bid x 7 days and 5mg po bid for the 3-4 month duration. Time Spent: Less than 30 Minutes
--- NOTE | 2017-10-06 15:50 | XCELERA REPORT ---
[address] [address] Transthoracic Echocardiogram Report Name: KEHINDE LEPE I Age: 61 yrs Gender: Female : 1955 Patient Status: Inpatient Patient Location: [address] [place] [address] Study Date: 10/06/2017 08:28 AM Height: 60 in Weight: 205 lb BSA: 1.9 m2 Procedure: A two-dimensional transthoracic echocardiogram with color flow and Doppler was performed. Study Quality: Technically suboptimal. The study was technically difficult with many images being suboptimal in quality. Reason For Study: acute pe History: acute pe. Ordering Physician: TONIA NIX Performed By: Sloane Santoro Interpretation Summary The left ventricle is grossly normal size. There is mild concentric left ventricular hypertrophy. Doppler measurements suggest impaired left ventricular relaxation, which is associated with grade I/IV or mild diastolic dysfunction Probably no regional wall motion abnormality with LVF60% The right ventricle is not well visualized secondary to technical limitations Right atrium not well visualized secondary to technical limitations The left atrial size is normal. There is no mitral valve stenosis. Probaly no MR. There is no aortic valve stenosis There is no tricuspid stenosis. Probably no TR.Unable to calculate RVSP due to insufficient TR jet. There is no pericardial effusion. No other comments. MMode/2D Measurements & Calculations RVDd: 2.6 cm LVIDd: 3.1 cm FS: 13.7 % Ao root diam: 3.0 cm IVSd: 1.2 cm LVIDs: 2.7 cm EDV(Teich): 37.6 ml LVPWd: 1.2 cm ESV(Teich): 26.2 ml Ao root area: 7.1 cm2 EF(Teich): 30.3 % LA dimension: 3.6 cm LVOT diam: 2.4 cm LVOT area: 4.6 cm2 Doppler Measurements & Calculations MV E max jaylen: MV P1/2t max jaylen: Ao V2 max: LV V1 max P.9 cm/sec 72.7 cm/sec 175.3 cm/sec 8.1 mmHg MV A max jaylen: MV P1/2t: 59.2 msec Ao max PG: LV V1 max: 93.5 cm/sec MVA(P1/2t): 3.7 cm2 12.3 mmHg 142.5 cm/sec MV E/A: 0.77 MV dec slope: NADEGE(V,D): 3.7 cm2 360.1 cm/sec2 PA V2 max: 107.6 cm/sec PA max P.6 mmHg Left Ventricle The left ventricle is grossly normal size. There is mild concentric left ventricular hypertrophy. Doppler measurements suggest impaired left ventricular relaxation, which is associated with grade I/IV or mild diastolic dysfunction. Probably no regional wall motion abnormality with LVF60%. Right Ventricle The right ventricle is not well visualized secondary to technical limitations. Atria Right atrium not well visualized secondary to technical limitations. The left atrial size is normal. Mitral Valve There is no mitral valve stenosis. Probaly no MR. Aortic Valve There is no aortic valve stenosis. There is a mild amount of aortic regurgitation. Tricuspid Valve There is no tricuspid stenosis. Probably no TR.Unable to calculate RVSP due to insufficient TR jet. Effusions There is no pericardial effusion. No other comments. : TONIA NIX > Nanda Hayward
[2017-10-06 17:26] VITALS: BP 136/75
[2017-10-06] MEDS ORDERED: APIXABAN 5 MG TABLET PO SCH (18:00)
== END 2017-10-06 17:31 | disposition home or self-care (01) | DRG 176 ==
LOC: ER 14:01 → EH 18:52 → 4N 23:15
PROVIDERS: ADMIT Internal Medicine; ATTEND Internal Medicine
DX: I26.99 Other pulmonary embolism without acute cor pulmonale (principal); Z68.41 Body mass index [BMI] 40.0-44.9, adult; E11.9 Type 2 diabetes mellitus without complications; E78.5 Hyperlipidemia, unspecified; I10 Essential (primary) hypertension; E66.01 Morbid (severe) obesity due to excess calories; E03.9 Hypothyroidism, unspecified; E87.6 Hypokalemia; Z79.899 Other long term (current) drug therapy
CPT/HCPCS: 36415; 71010; 71275; 80048; 80053; 81001; 82272; 82550; 82553; 82962; 84443; 84484; 85025; 85027; 85379; 85610; 93005; 93010; 93306; 93970; 96361; 96372; 96374; 99285; J1650; J3490; J7040

== ENCOUNTER → 2018-08-09 | Outpatient (CLI) | payer MEDICARE, OTHER ==
--- NOTE | 2018-08-09 14:14 | RADIOLOGY REPORT (SQ) ---
EXAM DESCRIPTION: CTA CHEST COMPLETED DATE/TIME: 08/09/2018 1:45 pm REASON FOR STUDY: I71.2 THORACIC AORTIC ANEURYSM, WITHOUT RUPTURE I71.2 THORACIC AORTIC ANEURYSM, W ITHOUT RUPTURE COMPARISON: 2017 studies. TECHNIQUE: CT scan of the chest performed using helical scanning technique with dynamic intravenous contrast injection. Images reviewed with lung, soft tissue and bone windows. Reconstructed coronal and sagittal MPR images reviewed. Additional 3 dimensional post-processing performed to develop Maximal Intensity Projection images (AL P). All images stored on PACS. All CT scanners at this facility use dose modulation, iterative reconstruction, and/or weight based d osing when appropriate to reduce radiation dose to as low as reasonably achievable (ALARA). [facility]: Dose Right [facility]: CareDose [facility]: Dose Right [facility]: Teradose 4D [facility]: YouLike CONTRAST TYPE AND DOSE: contrast/concentration: Isovue 350.00 mg/ml; Total Contrast Delivered: 56.0 ml; Total Saline Delivered: 77.0 ml Contrast bolus not optimized for the pulmonary arteries. RENAL FUNCTION: GFR > 60. RADIATION DOSE: CT Rad equipment meets quality standard of care and radiation dose reduction techniq ues were employed. CTDIvol: 13.2 - 14.2 mGy. DLP: 472 mGy-cm. . LIMITATIONS: None. FINDINGS: LUNGS AND PLEURA: No masses, infiltrates, or pneumothorax. No pleural effusions or pleura l calcifications. AORTA AND GREAT VESSELS: Dilated ascending aorta. This looks similar to prior. Just above the valve plane, this measures just under 5 cm. Up to 3.6 cm at the level of the right main pulmonary artery. Tapering beyond this. HEART: Cardiac enlargement with trace pericardial fluid. No significant coronary calcification. PULMONARY ARTERIES: Less than optimally opacified. No thrombus demonstrated centrally. HILAR AND MEDIASTINAL STRUCTURES: Small hiatal hernia. No mediastinal mass or adenopathy. HARDWARE: None in the chest. UPPER ABDOMEN: No significant findings. Limited exam. THYROID AND OTHER SOFT TISSUES: Mild left thyroid nodularity. No chest wall mass or axillary adenopa thy. BONES: No acute or significant finding. 3D MIPS: Confirm above findings. OTHER: No other significant finding. IMPRESSION: 1. Dilated ascending aorta, similar appearance compared to prior. Just above the valve plane in the proximal aorta, maximal dimension is just under 5 cm. My direct re- measurement, this i s similar on priors. COMMENT: Quality ID # [id number]: Final reports with documentation of one or more dose reduction techniques (e.g., Automated exposure control, adjustment of the mA and/or kV according to patient size, use of iterative reconstruction technique) TECHNICAL DOCUMENTATION: JOB ID: [id number] 2032 [employer]- All Rights Reserved Reading location - IP/workstation name: [email or web address]
== END ==
LOC: RAD 15:32
PROVIDERS: ATTEND Internal Medicine Cardiovascular Disease
DX: I71.2 Thoracic aortic aneurysm, without rupture (principal)
CPT/HCPCS: 71275; 82565

== ENCOUNTER 2020-09-10 10:20 | Day surgery (SDC) | payer MEDICARE, OTHER ==
[~2020-09-10 10:20] MED LIST: CHONDR SU A NA/HYALUR INTRAOC KIT (SURGICARE) ONE; EPINEPHRINE INJ/PF 1 MG/1 ML AMPULE ONE; KETOROLAC TROMETHAMINE 0.45% 4 DROP/0.4 ML DROPERETTE OS PRN; LIDOCAINE 1%/PHENYLEPHRINE 1.5% 1 ML VIAL ONE
[2020-09-10] MEDS ORDERED: MIDAZOLAM 2 MG/2 ML INJ ONE ×2 (10:25→11:14)
[2020-09-10] MEDS ORDERED: FENTANYL CITRATE INJ/PF 100 MCG/2 ML AMPUL ONE ×2 (10:25→11:14)
[2020-09-10] MEDS ORDERED: TRYPAN BLUE 0.06 % OPH SOLN 0.5 ML DISP.SYRIN ONE (10:43)
[2020-09-10] MEDS: TETRACAINE HCL 0.5% OPH SOLN 4 ML OS PRN ×3 (10:46→11:28)
[2020-09-10] MEDS: CYCLOPENTOLATE 0.2%/PHENYLEPHRINE 1% OPH SOLN 2 ML OS PRN ×3 (10:47→11:14)
[2020-09-10] MEDS: BESIFLOXACIN HCL 0.6% OPH SUSP 5 ML BOTTLE OS PRN ×4 (10:47→11:52)
[2020-09-10] MEDS: TROPICAMIDE 1% OPH SOLN 15 ML OS PRN ×3 (10:47→11:14)
[2020-09-10] MEDS: PREDNISOLONE ACETATE 1% OPH SUSP 5 ML OS PRN ×2 (11:52)
[2020-09-10] MEDS: DORZOLAMIDE HCL 2%/TIMOLOL MALEAT 0.5% OPH SOLN 10 ML OS PRN ×2 (11:52)
--- NOTE | 2020-09-11 06:54 | Operative Report ---
Operative Report-[facility] Operative Report: DATE OF SURGERY: 09/10/2020 PREOPERATIVE DIAGNOSIS: Cataracts, left eye POSTOPERATIVE DIAGNOSIS: Cataract, left eye OPERATION: Cataract extraction with insertion of an IOL of the left eye. Intraocular Lens Model: [12.0 SN 60 WF] Patient underwent surgery for difficulty seeing road signs SURGEON: Ok Ellis MD ANESTHESIA: Topical PROCEDURE: After obtaining appropriate consent, the patient's left eye was prepped and draped in a sterile fashion as well as the surgeon in the sterile manner and cataract surgery was started. First a paracentesis blade was used to make a side-port incision. Viscoelastic was used to inflate the anterior chamber. Next a 2.4 mm incision was made with a 2.4 mm blade, clear corneal temporarily. A continuous capsulorrhexis was made using a cystotome and Utrata forceps. Following this hydrodissection was carried out to make the lens fully loose and mobile and it was rotated 90 degrees. Following this, a divide and conquer technique was used to phacoemulsify the lens. The remaining cortex was removed with an irrigation/aspiration. Provisc was instilled into the capsular bag to inflate the bag.The intraocular lens was placed. The remaining viscoelastic material was removed with irrigation/aspiration. Following this, the incision was found to be watertight. Besivance and Cosopt was instilled into the eye and a protective shield was placed over the eye. The patient was returned to the postoperative recovery in a stable condition.
== END 2020-09-10 12:28 | disposition home or self-care (01) ==
LOC: SC 10:20
PROVIDERS: ATTEND Internal Medicine
DX: H25.89 Other age-related cataract (principal); H57.03 Miosis; E11.36 Type 2 diabetes mellitus with diabetic cataract; I10 Essential (primary) hypertension; E78.00 Pure hypercholesterolemia, unspecified; E03.9 Hypothyroidism, unspecified
CPT/HCPCS: 66984; 82962; V2632; J2250; J3490 ×2; A9270; J0171; J3010

== ENCOUNTER 2020-10-12 09:05 | Day surgery (SDC) | payer MEDICARE, OTHER ==
[~2020-10-12 09:05] MED LIST changes: +DORZOLAMIDE HCL 2%/TIMOLOL MALEAT 0.5% OPH SOLN 10 ML OD PRN; +KETOROLAC TROMETHAMINE 0.45% 4 DROP/0.4 ML DROPERETTE OD PRN; -KETOROLAC TROMETHAMINE 0.45% 4 DROP/0.4 ML DROPERETTE OS PRN; +MIDAZOLAM 2 MG/2 ML INJ ONE; +PREDNISOLONE ACETATE 1% OPH SUSP 5 ML OD PRN
[2020-10-12] MEDS: TETRACAINE HCL 0.5% OPH SOLN 4 ML OD PRN ×3 (10:00→10:30)
[2020-10-12] MEDS: BESIFLOXACIN HCL 0.6% OPH SUSP 5 ML BOTTLE OD PRN ×3 (10:00→10:55)
[2020-10-12] MEDS: CYCLOPENTOLATE 0.2%/PHENYLEPHRINE 1% OPH SOLN 2 ML OD PRN ×3 (10:00→10:20)
[2020-10-12] MEDS: TROPICAMIDE 1% OPH SOLN 15 ML OD PRN ×3 (10:00→10:20)
[2020-10-12] MEDS ORDERED: FENTANYL CITRATE INJ/PF 100 MCG/2 ML AMPUL ONE (10:38)
[2020-10-12] MEDS ORDERED: MIDAZOLAM 2 MG/2 ML INJ ONE (10:38)
--- NOTE | 2020-10-12 11:33 | Operative Report ---
Operative Report-[facility] Operative Report: DATE OF SURGERY: 10/12/2020 PREOPERATIVE DIAGNOSIS: Cataract, right eye POSTOPERATIVE DIAGNOSIS: Cataract, right eye OPERATION: Cataract extraction with insertion of an IOL of the right eye. Intraocular Lens Model: [13.5 diopter SN 60 WF] Surgery for difficulty seeing the iPad and medicine bottles SURGEON: kO Ellis MD ANESTHESIA: Topical PROCEDURE: After obtaining appropriate consent, the patient's right eye was prepped and draped in a sterile fashion as well as the surgeon in the sterile manner and cataract surgery was started. First a paracentesis blade was used to make a side-port incision. Viscoelastic was used to inflate the anterior chamber. Next a 2.4 mm incision was made with a 2.4 mm blade, clear corneal temporarily. A continuous capsulorrhexis was made using a cystotome and Utrata forceps. Following this hydrodissection was carried out to make the aba fully loose and mobile and it was rotated. Following this, a divide and conquer technique was used to phacoemulsify the aba. The remaining cortex was removed with an irrigation/aspiration. Provisc was instilled into the capsular bag to inflate the bag. The intraocular lens was placed. The remaining viscoelastic material was removed with irrigation/aspiration. Following this, the incision was found to be watertight. Besivance and Cosopt was instilled into the eye and a protective shield was placed over the eye. The patient was reurned to the postoperative recovery in a stable condition.
== END 2020-10-12 11:48 | disposition home or self-care (01) ==
LOC: SC 09:05
PROVIDERS: ATTEND Internal Medicine
DX: H25.89 Other age-related cataract (principal); H57.03 Miosis; Z96.1 Presence of intraocular lens; E11.36 Type 2 diabetes mellitus with diabetic cataract; Z79.84 Long term (current) use of oral hypoglycemic drugs; I10 Essential (primary) hypertension; E78.00 Pure hypercholesterolemia, unspecified; E03.9 Hypothyroidism, unspecified; Z79.899 Other long term (current) drug therapy; G47.33 Obstructive sleep apnea (adult) (pediatric); D64.9 Anemia, unspecified
CPT/HCPCS: 66984; 82962; V2632; J2250; J3490 ×2; A9270; J0171; J3010; 142